=== PATIENT | female | born 1935 | race Caucasian/White ===

== ENCOUNTER 2017-01-10 12:39 | Inpatient (IN) | payer OTHER ==
[~2017-01-10] VITALS: Ht 162.6 cm; Wt 70.8 kg
[2017-01-10 14:45] LABS: CALCIUM 8.9 mg/dL (8.5-10.1); CARBON DIOXIDE 27.7 mmol/L (21-32); CHLORIDE SERUM 104 mmol/L (98-107); CREATININE SERUM 0.9 mg/dL (0.6-1.0); GLUCOSE SERUM 122 mg/dL (74-106); POTASSIUM SERUM 4.3 mmol/L (3.5-5.1); SODIUM SERUM 139 mmol/L (136-145)
[2017-01-10 14:46] LABS: BASOPHIL % 0.3 % (0-2)
[2017-01-10 14:51] LABS: ALKALINE PHOSPHATASE 97 U/L (46-116); ALT/SGPT 28 U/L (14-59); AST/SGOT 24 U/L (15-37); BILIRUBIN TOTAL 0.7 mg/dL (0.20-1.00); TOTAL PROTEIN, SERUM 7.6 g/dL (6.4-8.2)
[2017-01-10 14:52] LABS: ALBUMIN 2.3 g/dL (3.4-5.0); PLATELET COUNT 724 x10^3mcL (130-400); RED CELL DISTRIBUTION WIDTH 16.7 % (11.5-14.5)
[2017-01-10 15:17] LABS: microscopic required? YES; urine erythrocyte NEGATIVE (NEGATIVE)
[2017-01-10 16:46] LABS: AMPHETAMINE QUAL UR NONE DETECTED (NEG <=1000)
[2017-01-10 16:53] LABS: CHOLESTEROL/HDL RATIO 3.5; MAGNESIUM 1.9 mg/dL (1.8-2.4); PHOSPHOROUS 2.5 mg/dL (2.5-4.9)
[2017-01-10 17:01] LABS: T3 TOTAL 0.91 ng/mL
[2017-01-10 17:27] LABS: FREE T4 1.86 ng/dL (0.76-1.46); T4(THYROXINE) 13.1 ug/dL (4.7-13.3)
[2017-01-10 17:32] VITALS: BP 116/62
[2017-01-10 17:33] VITALS: BP 116/62
[2017-01-10 20:30] VITALS: BP 135/53
[2017-01-10 21:18] VITALS: BP 139/53
[2017-01-11 06:02] LABS: BASOPHIL % 0.8 % (0-2)
[2017-01-11 06:09] VITALS: BP 129/53
[2017-01-11 06:57] LABS: CALCIUM 7.7 mg/dL (8.5-10.1); CARBON DIOXIDE 22.5 mmol/L (21-32); CHLORIDE SERUM 108 mmol/L (98-107); CREATININE SERUM 0.6 mg/dL (0.6-1.0); GLUCOSE SERUM 92 mg/dL (74-106); MAGNESIUM 1.7 mg/dL (1.8-2.4); PHOSPHOROUS 2.1 mg/dL (2.5-4.9); POTASSIUM SERUM 3.6 mmol/L (3.5-5.1); SODIUM SERUM 140 mmol/L (136-145)
[2017-01-11 07:45] LABS: RED CELL DISTRIBUTION WIDTH 16.8 % (11.5-14.5)
[2017-01-11 07:46] LABS: PLATELET COUNT 614 x10^3mcL (130-400)
[2017-01-11 09:30] VITALS: BP 137/53
[2017-01-11 13:56] VITALS: BP 112/45
[2017-01-11 16:46] VITALS: BP 121/54
[2017-01-11 20:50] VITALS: BP 116/53
[2017-01-12 05:24] VITALS: BP 113/67
[2017-01-12 06:33] LABS: BASOPHIL % 0.9 % (0-2)
[2017-01-12 06:48] LABS: PLATELET COUNT 593 x10^3mcL (130-400); RED CELL DISTRIBUTION WIDTH 16.8 % (11.5-14.5)
[2017-01-12 06:57] LABS: CARBON DIOXIDE 20.8 mmol/L (21-32); CHLORIDE SERUM 109 mmol/L (98-107); CREATININE SERUM 0.7 mg/dL (0.6-1.0); GLUCOSE SERUM 105 mg/dL (74-106); POTASSIUM SERUM 4.6 mmol/L (3.5-5.1); SODIUM SERUM 140 mmol/L (136-145)
[2017-01-12 09:40] VITALS: BP 122/60
[2017-01-12 13:45] VITALS: BP 108/50
[2017-01-12 16:44] VITALS: BP 118/51
[2017-01-12 21:13] VITALS: BP 124/51
[2017-01-13 05:32] VITALS: BP 135/58
[2017-01-13 10:01] VITALS: BP 134/53
[2017-01-13 12:44] VITALS: Ht 162.6 cm; Wt 70.8 kg
[2017-01-13 13:10] VITALS: BP 159/62
[2017-01-13 17:26] VITALS: BP 138/62
[2017-01-13 20:40] VITALS: BP 149/60
[2017-01-14 05:40] VITALS: BP 139/64
[2017-01-14] MEDS ORDERED: LAC PO (10:19)
[2017-01-14] MEDS ORDERED: BACTRIM DS1 TAB PO (10:20)
[2017-01-14 10:30] VITALS: BP 146/61
== END 2017-01-14 17:49 | disposition home health service (06) | DRG 871 ==
LOC: ED 12:39 → DU 15:53 → MU 15:53 → DU 16:40 → MU 01-13 14:54
PROVIDERS: Emergency Medicine; Student in an Organized Health Care Education/Training Program; ADMIT Family Medicine Sports Medicine
DX: A41.9 Sepsis, unspecified organism (principal); N17.0 Acute kidney failure with tubular necrosis; E43 Unspecified severe protein-calorie malnutrition; N39.0 Urinary tract infection, site not specified; T76.01XA Adult neglect or abandonment, suspected, initial encounter; R65.20 Severe sepsis without septic shock; Z66 Do not resuscitate; Z85.3 Personal history of malignant neoplasm of breast; Z68.26 Body mass index [BMI] 26.0-26.9, adult; B37.2 Candidiasis of skin and nail; D64.9 Anemia, unspecified; E83.51 Hypocalcemia; R80.9 Proteinuria, unspecified; M17.12 Unilateral primary osteoarthritis, left knee; I73.9 Peripheral vascular disease, unspecified; M94.0 Chondrocostal junction syndrome [Tietze]; G30.9 Alzheimer's disease, unspecified; F02.80 Dementia in other diseases classified elsewhere, unspecified severity, without behavioral disturbance, psychotic disturbance, mood disturbance, and anxiety
CPT/HCPCS: 83880; 84439; 90658; 90732; 97110-GP; 97116-GP; 97530-GP; J0696; J3475; J7030; J7050; Q0092